=== PATIENT | female | born 1985 | race Caucasian/White ===

== ENCOUNTER 2020-05-29 19:31 | Emergency (ER) | payer OTHER ==
[~2020-05-29] VITALS: Ht 167.6 cm; Wt 61.2 kg
[2020-05-29 19:43] VITALS: BP 132/64
== END 2020-05-29 20:12 | disposition home or self-care (01) ==
LOC: ER 19:32
DX: R51.9 Headache, unspecified (principal); Z20.828 Contact with and (suspected) exposure to other viral communicable diseases; M79.10 Myalgia, unspecified site; H53.8 Other visual disturbances
CPT/HCPCS: 99283; C9803; U0003

== ENCOUNTER 2020-09-03 19:25 | Emergency (ER) | payer OTHER ==
--- NOTE | 2020-09-03 19:46 | NUR ---
LAB AT BEDSIDE FOR BLOOD DRAW
[2020-09-03] MEDS ORDERED: EMTR1TAB12 PO (19:52)
[2020-09-03] MEDS ORDERED: RALT400T PO (19:52)
[2020-09-03 19:59] LABS: BASOPHILS % (AUTO) 0.4 % (0.0-2.0); EOSINOPHILS % (AUTO) 3.5 % (0.0-6.0); HEMATOCRIT 43 % (33-45); HEMOGLOBIN 13.8 g/dL (11.5-14.8); LYMPHOCYTES # (AUTO) 3.4 /CMM (0.8-4.8); LYMPHOCYTES % (AUTO) 44.3 % (20.0-44.0); MEAN CORPUSCULAR HGB CONC 32 g/dl (31.0-36.0); MEAN CORPUSCULAR VOLUME 97 fL (82-100); MONOCYTES # (AUTO) 0.4 /CMM (0.1-1.30); MONOCYTES % (AUTO) 5.2 % (2.0-12.0); NEUTROPHILS # (AUTO) 3.6 /CMM (1.8-8.9); NEUTROPHILS % (AUTO) 46.6 % (43.0-81.0); PLATELET COUNT (AUTO) 301 /CMM (150-450); WHITE BLOOD COUNT (AUTO) 7.7 K/uL (4.3-11.0)
[2020-09-03 20:27] LABS: CALCIUM, SERUM 8.8 mg/dL (8.5-10.1); CREATININE 0.8 mg/dL (0.6-1.3)
[2020-09-03 20:43] LABS: ALBUMIN 4.3 g/dL (3.4-5.0); BILIRUBIN,TOTAL 0.3 mg/dL (0.2-1.0); TOTAL PROTEIN, SERUM 8.1 g/dL (6.4-8.2)
== END 2020-09-03 20:10 | disposition home or self-care (01) ==
LOC: ER 19:29
DX: S61.231A Puncture wound without foreign body of left index finger without damage to nail, initial encounter (principal); Z79.899 Other long term (current) drug therapy; W46.0XXA Contact with hypodermic needle, initial encounter; Y93.89 Activity, other specified; Y92.89 Other specified places as the place of occurrence of the external cause; Y99.8 Other external cause status
CPT/HCPCS: 36415; 80053-TC; 80074; 84702-TC; 85025-TC; 87806